=== PATIENT | male | born 1965 | race Caucasian/White ===

== ENCOUNTER 2022-01-16 14:47 | Outpatient (CLI) | payer OTHER ==
[2022-01-16 16:47] LABS: Hemoglobin 13.9 g/dL (13.5-17.5); Mean Corpuscular HGB CONC 34.9 g/dL (32.0-36.0); Mean Corpuscular Hemoglobin 31.9 pg (27.0-33.0); Mean Corpuscular Volume 91.3 fl (81.2-95.1); Mean Platelet Volume 9.4 fl (7.4-10.4); Platelet Count 373 10x3/uL (150-450); RBC Distribution Width 12.1 % (11.5-14.5); Red Blood Cell (RBC) Count 4.36 10x6/uL (4.32-5.72); White Blood Cell (WBC) Count 11.2 10x3/uL (3.5-10.5)
[2022-01-16 17:00] LABS: INR-International Normal Ratio 0.9; PTT 27.3 sec (22.0-33.0); Prothrombin Time 10.3 sec (9.5-12.1)
[2022-01-16 17:03] LABS: Anion Gap 15 mmol/L (10-20); BUN (Urea Nitrogen) 16 mg/dL (8.4-25.7); Calc. Creatinine Clearance 0 mL/min (70-130); Calcium 9.4 mg/dL (7.8-10.44); Carbon Dioxide 22 mmol/L (22-29); Chloride 106 mmol/L (98-107); Glucose 166 mg/dL (70-105); Sodium 139 mmol/L (136-145)
[2022-01-16 17:34] LABS: Estimated GFR 102
== END 2022-01-16 14:48 | disposition home or self-care (01) ==
LOC: LABBT 14:47
PROVIDERS: ATTEND Orthopaedic Surgery
DX: Z01.818 Encounter for other preprocedural examination (principal); Z20.822 Contact with and (suspected) exposure to COVID-19
CPT/HCPCS: 80048; 85027; 85610; 85730; 87811; 93005; 93010

== ENCOUNTER 2022-02-03 13:51 | Outpatient (CLI) | payer OTHER | END 2022-02-03 13:52 | disposition home or self-care (01) | LOC: SCSMRI 13:51 | PROVIDERS: ATTEND Orthopaedic Surgery | DX: M47.26 Other spondylosis with radiculopathy, lumbar region (principal); M54.2 Cervicalgia; R93.5 Abnormal findings on diagnostic imaging of other abdominal regions, including retroperitoneum; M51.16 Intervertebral disc disorders with radiculopathy, lumbar region; M48.061 Spinal stenosis, lumbar region without neurogenic claudication; M43.17 Spondylolisthesis, lumbosacral region; M47.817 Spondylosis without myelopathy or radiculopathy, lumbosacral region; M48.07 Spinal stenosis, lumbosacral region; M46.06 Spinal enthesopathy, lumbar region; M46.02 Spinal enthesopathy, cervical region; M43.12 Spondylolisthesis, cervical region; M50.021 Cervical disc disorder at C4-C5 level with myelopathy; M48.02 Spinal stenosis, cervical region; M50.022 Cervical disc disorder at C5-C6 level with myelopathy; M47.12 Other spondylosis with myelopathy, cervical region; M50.023 Cervical disc disorder at C6-C7 level with myelopathy | CPT/HCPCS: 72141; 72148; 74018 ==

== ENCOUNTER 2022-04-16 07:33 | Day surgery (SDC) | payer OTHER ==
[2022-04-14 14:40] VITALS: BMI 30.5
[2022-04-16] MEDS ORDERED: Lidocaine 1% MPF 2 ML VIAL ONE (08:37)
[2022-04-16] MEDS ORDERED: CEFAZOLIN 2 GM VIAL ONE ×3 (08:37→13:07)
[2022-04-16] MEDS ORDERED: Sodium Chloride 0.9% 0 ML ONE (08:37)
[2022-04-16] MEDS ORDERED: Fentanyl 250 MCG/5 ML VIAL ONE (09:09)
[2022-04-16] MEDS ORDERED: Sodium Chloride 0.9% 100 ML ONE ×2 (09:19→13:07)
[2022-04-16] MEDS ORDERED: NEOSTIGMINE 3 MG/3 ML SYR 3 MG/3 ML SYRINGE ONE (09:35)
[2022-04-16] MEDS ORDERED: PROPOFOL 200 MG/20 ML VIAL ONE (09:35)
[2022-04-16] MEDS ORDERED: Lidocaine 1% PF 5 ML VIAL ONE (09:35)
[2022-04-16] MEDS ORDERED: Rocuronium Bromide 10 MG/ML (10ML VIAL) ONE (09:35)
[2022-04-16] MEDS ORDERED: Dexamethasone 20 MG/5 ML VIAL ONE (09:35)
[2022-04-16] MEDS ORDERED: Ondansetron PF 4 MG/2 ML Vial ONE (09:35)
[2022-04-16] MEDS ORDERED: Glycopyrrolate 0.2 MG/ML 5 ML SYRINGE ONE (09:35)
[2022-04-16] MEDS ORDERED: HYDROmorphone 2 MG/ML VIAL SLOW IVP PRN (10:36)
[2022-04-16] MEDS ORDERED: Ondansetron HCl/PF 4 MG/2 ML Vial IVP PRN (10:36)
[2022-04-16] MEDS ORDERED: Promethazine HCl 25 MG/ML VIAL IVPB PRN (10:36)
[2022-04-16] MEDS ORDERED: Promethazine HCl 25 MG/ML VIAL IM PRN (10:36)
[2022-04-16] MEDS ORDERED: PACU-Morphine 4MG/ML VIAL SLOW IVP PRN (10:36)
[2022-04-16] MEDS ORDERED: Morphine Sulfate 2 MG/ML SYRINGE SLOW IVP PRN (10:36)
[2022-04-16] MEDS ORDERED: Tamsulosin HCl 0.4 MG CAP ONE (11:08)
== END 2022-04-16 13:48 | disposition home or self-care (01) ==
LOC: SDC 07:33
PROVIDERS: ATTEND Neurological Surgery
PROC: 0RG10A0 Fusion of Cervical Vertebral Joint with Interbody Fusion Device, Anterior Approach, Anterior Column, Open Approach (ICD-10-PCS; principal; 2022-04-16)
DX: M54.12 Radiculopathy, cervical region (principal); G89.4 Chronic pain syndrome; Z87.891 Personal history of nicotine dependence; Z79.899 Other long term (current) drug therapy; Z96.82 Presence of neurostimulator
CPT/HCPCS: C1713; C1889; J1100; J2405; J2704; J3010; J3490

== ENCOUNTER 2022-06-02 05:43 | Day surgery (SDC) | payer OTHER, MEDICAID ==
[2022-05-29 10:32] VITALS: BMI 31.4
[2022-06-02] MEDS ORDERED: Midazolam HCl 2 mg/2 ml Vial ONE (06:30)
[2022-06-02] MEDS ORDERED: fentaNYL PF 100 MCG/2 ML SYRINGE ONE (06:30)
[2022-06-02] MEDS ORDERED: HYDROmorphone 0.5 MG/0.5 ML SYRINGE ONE (06:30)
[2022-06-02] MEDS ORDERED: Bupivacaine HCl 0.5%/Epinephrine 1:200,000/PF 30 ml Vial ONE (06:49)
[2022-06-02] MEDS ORDERED: Thrombin 5000 UNITS/5 ML VIAL ONE (06:49)
[2022-06-02] MEDS ORDERED: CEFAZOLIN 2 GM VIAL ONE ×2 (06:57→09:58)
[2022-06-02] MEDS ORDERED: Sodium Chloride 0.9% 100 ML ONE ×2 (06:57→09:58)
[2022-06-02] MEDS ORDERED: Ondansetron PF 4 MG/2 ML Vial ONE (07:02)
[2022-06-02] MEDS ORDERED: PROPOFOL 200 MG/20 ML VIAL ONE (07:02)
[2022-06-02] MEDS ORDERED: Rocuronium Bromide 10 MG/ML (10ML VIAL) ONE (07:02)
[2022-06-02] MEDS ORDERED: Dexamethasone 20 MG/5 ML VIAL ONE (07:02)
[2022-06-02] MEDS ORDERED: Lidocaine 1% PF 5 ML VIAL ONE (07:02)
[2022-06-02] MEDS ORDERED: ePHEDrine 50 MG/ML VIAL ONE (07:02)
[2022-06-02] MEDS ORDERED: Fentanyl 100 MCG/2 ML VIAL ONE (09:14)
[2022-06-02] MEDS ORDERED: Tamsulosin HCl 0.4 MG CAP ONE (09:26)
[2022-06-02] MEDS ORDERED: HYDROcodone/Acetaminophen 5/325 mg Tablet ONE (10:09)
== END 2022-06-02 11:30 | disposition home or self-care (01) ==
LOC: SDC 05:43
PROVIDERS: ATTEND Neurological Surgery
PROC: 01NB0ZZ Release Lumbar Nerve, Open Approach (ICD-10-PCS; principal; 2022-06-02)
DX: M48.062 Spinal stenosis, lumbar region with neurogenic claudication (principal); Z79.899 Other long term (current) drug therapy; Z98.1 Arthrodesis status
CPT/HCPCS: J1100; J1170; J2250; J2405; J2704; J3010; J3490